=== PATIENT | female | born 1970 | race Caucasian/White ===

== ENCOUNTER 2024-08-21 14:20 | Emergency (ER) | payer OTHER, BC ==
[2024-08-21 14:27] VITALS: TEMP 98.2
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
[2024-08-21] MEDS: ACETAMINOPHEN TAB 500 MG TAB PO STA (15:29)
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
[2024-08-21 16:36] VITALS: BP 140/95; PULSE 72; RESP 20
== END 2024-08-21 16:36 | disposition home or self-care (01) ==
LOC: EC 14:20
CPT/HCPCS: 70450; 99284

== ENCOUNTER → 2024-08-27 | Outpatient (CLI) | payer OTHER ==
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
== END ==
LOC: RADXRMAIN 09:35
PROVIDERS: ATTEND Emergency Medicine
CPT/HCPCS: 70486; 72125